=== PATIENT | male | born 1990 | race Caucasian/White ===

== ENCOUNTER 2023-05-26 18:39 | Emergency (ER) | payer MEDICARE, MEDICAID ==
[2023-05-26] MEDS ORDERED: Ketorolac 30 MG/ML SDV IM STA (18:56)
[2023-05-26] MEDS ORDERED: hydrOXYzine HCl 50 MG/ML SDV IM ONE (19:07)
== END 2023-05-26 20:45 | disposition home or self-care (01) ==
LOC: FB.ED 18:39
DX: R51.9 Headache, unspecified (principal); G89.29 Other chronic pain; F17.210 Nicotine dependence, cigarettes, uncomplicated
CPT/HCPCS: 70450; 96372; 99283; J1885; J3410

== ENCOUNTER 2023-08-11 21:59 | Emergency (ER) | payer MEDICARE, MEDICAID ==
[2023-08-11] MEDS ORDERED: Ondansetron 4 MG Tab.DIS PO ONE (22:31)
[2023-08-11] MEDS ORDERED: Ketorolac 30 MG/ML SDV IM STA (22:31)
== END 2023-08-11 23:15 | disposition home or self-care (01) ==
LOC: FB.ED 21:59
DX: G43.909 Migraine, unspecified, not intractable, without status migrainosus (principal)
CPT/HCPCS: 96372; 99283; J1885; Q0162